=== PATIENT | female | born 1955 | race Caucasian/White ===

== ENCOUNTER 2022-11-21 06:11 | Emergency (ER) | payer MEDICARE, OTHER ==
[~2022-11-21] VITALS: Ht 162.6 cm; Wt 59.9 kg
--- NOTE | 2022-11-21 06:15 | NUR ---
Patient BIB paramedics c/o "lung pain" x2 months
--- NOTE | 2022-11-21 06:16 | NUR ---
Patient satting @100% on RA. NAD noted.
--- NOTE | 2022-11-21 06:17 | NUR ---
Dr Medeiros at bedside MSE in progress
[2022-11-21] MEDS ORDERED: PANT40TA49 PO (06:29)
[2022-11-21] MEDS ORDERED: ONDANSETRON ODT 4 MG TAB.RAPDIS SL ONE (06:30)
[2022-11-21] MEDS ORDERED: MAG HYDROX/AL HYDROX/SIMETH 30 ML LIQUID UDC ONE (06:30)
[2022-11-21] MEDS ORDERED: HALOPERIDOL LACTATE 5 MG/1 ML VIAL IM ONE (06:30)
[2022-11-21] MEDS ORDERED: MAG HYDROX/AL HYDROX/SIMETH 30 ML LIQUID UDC PO ONE (06:30)
[2022-11-21] MEDS ORDERED: FAMOTIDINE 20 MG TABLET ONE (06:30)
[2022-11-21] MEDS ORDERED: FAMOTIDINE 20 MG TABLET PO ONE (06:30)
[2022-11-21] MEDS ORDERED: HALOPERIDOL LACTATE 5 MG/1 ML VIAL ONE (06:31)
[2022-11-21] MEDS ORDERED: ONDANSETRON ODT 4 MG TAB.RAPDIS ONE (06:31)
--- NOTE | 2022-11-21 06:37 | NUR ---
Patient stated she's having "severe lung pain" requesting IV morphine. notified
[2022-11-21 06:43] LABS: HEMATOCRIT 37.6 % (31.2-41.9); MEAN CORPUSCULAR HEMOGLOBIN 30.7 uug (24.7-32.8); MEAN CORPUSCULAR VOLUME 91.7 fL (75.5-95.3); PLATELET COUNT (AUTO) 498 K/uL (179-408)
[2022-11-21 07:00] LABS: CREATININE 0.9 mg/dL (0.6-1.3); POTASSIUM 4.3 mmol/L (3.5-5.1)
[2022-11-21] MEDS ORDERED: FAMO10TA41 PO (07:08)
[2022-11-21 07:15] LABS: BILIRUBIN,TOTAL 0.1 mg/dL (0.2-1.0); TOTAL PROTEIN, SERUM 7.6 g/dL (6.4-8.2)
--- NOTE | 2022-11-21 08:15 | NUR ---
PT WAS D/C'd TO HOME. D/C INSTRUCTIONS GIVEN TO THE PT BY DR TORRES.
[2022-11-21 08:16] VITALS: BP 133/78
== END 2022-11-21 11:23 | disposition home or self-care (01) ==
LOC: ER 06:14
DX: R10.10 Upper abdominal pain, unspecified (principal); F17.210 Nicotine dependence, cigarettes, uncomplicated; Z76.5 Malingerer [conscious simulation]; Z59.00 Homelessness unspecified; Z79.899 Other long term (current) drug therapy
CPT/HCPCS: 99285; 74176; 71045; 80053; 83880; 85025; 85610; 84484 ×2; 36415; 93005; 96372; J1630; A4663; Q0162